=== PATIENT | female | born 1980 | race Caucasian/White ===

== ENCOUNTER 2017-02-19 09:01 | Observation (INO) | payer BC ==
--- NOTE | 2017-02-19 10:03 | ED ---
Abdominal Pain/Female - HPI Summary HPI Summary: Patient is a 36yo F presenting to the ED with CC of chest pain and abdominal pain 10 days s/p tension-free vaginal tape procedure for stress incontinence. This procedure was laparoscopic with trochar usage. This was an outpatient procedure and no complications were noted in the post-procedure note. Today, she states 3 days ago began with chest pain which is intermittent, described as a sharp and a pressure, moves about, but does not radiate. She also states she has had abdominal pain described as a sharp stabbing pain around the umbilicus. Eating and drinking OK. Denies urinary symptoms or back pain, fevers, chills , sweats, N/V/C/D. Denies SPANN. Denies any calf tenderness. She has been urinating normally without issues with incontinence. She called Dr. Hoffman ([phone]) this morning who advised her to come here to r/o PE. She was not placed on blood thinners s/p procedure as this was an outpatient procedures. PSHx includes hysterectomy, and anterior and posterior colporrhaphy. She is not experiencing any difficulty breathing. - History of Current Complaint Chief Complaint: EDGeneral Stated Complaint: ABD/CHEST PAIN Time Seen by Provider: 02/19/17 09:11 Hx Obtained From: Patient Hx Last Menstrual Period: 2010 ?: No Onset/Duration: Sudden Onset Timing: Constant Severity Initially: Moderate Severity Currently: Moderate Pain Intensity: 6 Pain Scale Used: 0-10 Numeric Location: Umbilical, Other - chest Radiates: Yes Radiates to: Chest Character: Burning Alleviating Factor(s): Nothing Associated Signs and Symptoms: Positive: Chest Pain - Risk Factors Ectopic Risk Factor: Maternal Age ^ 28, Prior Pelvic Surgery Ovarian Torsion Risk Factor: Negative Allergies/Adverse Reactions: Allergies Allergy/AdvReac Type Severity Reaction Status Date / Time Codeine Allergy Intermediate Vomiting Verified 05/21/15 08:14 Home Medications: Home Medications ALPRAZolam TAB* [Xanax TAB*] 0.5 mg PO Q6HR PRN 02/19/17 [History Confirmed ] Albuterol HFA INHALER* [Ventolin HFA Inhaler*] 2 puff INH DAILY 02/19/17 [ History Confirmed 02/19/17] Cholecalciferol [Vitamin D3 Ultra Strength] 5,000 unit PO DAILY 02/19/17 [ History Confirmed 02/19/17] Cyanocobalamin TAB* [Vitamin B12 TAB*] 1,000 mcg PO DAILY 02/19/17 [History Confirmed 02/19/17] Gabapentin CAP(*) [Neurontin 100 mg CAP(*)] 200 mg PO QPM 02/19/17 [History Confirmed 02/19/17] Multivitamins/Minerals TAB* [Theragran/minerals TAB*] 1 tab PO DAILY 02/19/17 [ History Confirmed 02/19/17] Sumatriptan [Imitrex] 20 mg BOTH NARES DAILY PRN 02/19/17 [History Confirmed ] ValACYclovir (*) [Valtrex 1 GM(*)] 1 gm PO TID PRN 02/19/17 [History Confirmed 02/19/17] Valsartan TAB* [Diovan TAB*] 40 mg PO BID 02/19/17 [History Confirmed 02/19/17] Zolpidem CR (NF) [Ambien CR (NF)] 6.25 mg PO BEDTIME PRN MDD 6.25 mg 02/19/17 [ History Confirmed 02/19/17] busPIRone TAB* [Buspar TAB*] 7.5 mg PO DAILY 02/19/17 [History Confirmed ] PMH/Surg Hx/FS Hx/Imm Hx Previously Healthy: Yes Endocrine/Hematology History: Denies: Hx Diabetes Cardiovascular History: Reports: Hx Hypercholesterolemia, Hx Hypertension - HX OF from OCP-stopped as teen & BP normalized, ALSO HAS WHITE COAT SYNDROM Denies: Hx Congestive Heart Failure, Hx Pacemaker/ICD Respiratory History: Reports: Hx Sleep Apnea - MILD History: Denies: Hx Renal Disease Musculoskeletal History: Reports: Other Musculoskeletal History - (left) ankle FX Sensory History: Reports: Hx Contacts or Glasses - INSTRUCT GIVEN Denies: Hx Hearing Aid Opthamlomology History: Reports: Hx Contacts or Glasses - INSTRUCT GIVEN Neurological History: Reports: Hx Headaches, Hx Migraine - 2 X PER YEAR- TREATS WITH EXCEDRINE MIGRAINE Psychiatric History: Reports: Hx Anxiety - ON MEDICATION FOR, Hx Depression - ON MEDICATION FOR Denies: Hx Panic Disorder - Surgical History Surgery Procedure, Year, and Place: [id number]. [place]. [place] [place]x Anesthesia Reactions: Yes - NAUSEA - Immunization History Date of Tetanus Vaccine: Unknown Hx Pertussis Vaccination: No Immunizations Up to Date: Unable to Obtain/Confirm Infectious Disease History: No Infectious Disease History: Denies: Traveled Outside the [place] in Last 30 Days - Social History Occupation: Employed Full-time Lives: With Family Alcohol Use: Occasionally Hx Substance Use: No Substance Use Type: Reports: None Hx Tobacco Use: No Smoking Status (MU): Never Smoked Tobacco Review of Systems Constitutional: Negative Eyes: Negative ENT: Negative Positive: Chest Pain Respiratory: Negative Positive: Abdominal Pain Positive: no symptoms reported, see HPI Musculoskeletal: Negative Skin: Negative Neurological: Negative All Other Systems Reviewed And Are Negative: Yes Physical Exam Triage Information Reviewed: Yes Vital Signs On Initial Exam: Initial Vitals Temp Pulse Resp BP Pulse Ox 97.7 F 80 20 152/100 100 02/19/17 09:05 02/19/17 09:05 02/19/17 09:05 02/19/17 09:05 02/19/17 09:05 Vital Signs Reviewed: Yes Appearance: Positive: Well-Appearing, Well-Nourished Skin: Positive: Warm, Skin Color Reflects Adequate Perfusion Head/Face: Positive: Normal Head/Face Inspection Eyes: Positive: EOMI, NGUYỄN, Conjunctiva Clear Neck: Positive: Supple, No Lymphadenopathy Respiratory/Lung Sounds: Positive: Clear to Auscultation, Breath Sounds Present Cardiovascular: Positive: RRR Pelvic Exam: Positive: other - no pelvic exam performed Musculoskeletal: Positive: Strength/ROM Intact Neurological: Positive: Sensory/Motor Intact, Alert, Oriented to Person Place, Time, Speech Normal Psychiatric: Positive: Normal AVPU Assessment: Alert - Jacey Coma Scale Coma Scale Total: 15 Diagnostics - Vital Signs Vital Signs Temp Pulse Resp BP Pulse Ox 02/19/17 09:35 99.1 F 80 12 139/91 93 02/19/17 09:34 139/91 02/19/17 09:05 97.7 F 80 20 152/100 100 - Laboratory Result Diagrams: 02/19/17 10:10 02/19/17 10:10 Lab Statement: Any lab studies that have been ordered have been reviewed, and results considered in the medical decision making process. Abdominal Pain Fem Course/Dx - Course Course Of Treatment: Patient given 4mg morphine twice without relief of symptoms. She is evaluated for PE with CTA and abdominal/pelvis CT to r/o abdominal pathology s/p TVT surgery in [place] with Dr. Garcia. Pain is not well controlled. EKG, trop and imaging all WNL. No evidence of heart pathology. Considered costochondritis but patient denies any exertion and pain is not improved with ibuprofen at home. Despite morphine, ordered toradol for possible inflammation. Discussed case with Dr. Garcia in [place] who thinks the chest pain and abdominal pain is not related to the recent surgery d/t location. Spoke with Dr. Valencia who agrees to accept the patient. Patient made aware. On final evaluation by ED provider, patients pain is located primarily in the chest which does not radiate. She is OK with admission. - Diagnoses Differential Diagnosis: Positive: Appendicitis, Bowel Obstruction, Other - costochondritis, post-surgical pain Provider Diagnoses: Chest pain, Abdominal pain Discharge - Discharge Plan Condition: Stable Disposition: ADMITTED TO [facility] Discharge Disposition Comment: admitted to [facility] to Dr. Valencia at 4pm. Referrals: Romeo Hayes DO [Primary Care Provider] -
[2017-02-19 10:34] LABS: Hematocrit 43 % (35-47); Hemoglobin 14.9 g/dl (12.0-16.0); Mean Corpuscular HGB Conc 35 g/dl (31-36); Mean Corpuscular Hemoglobin 32 pg (27-31); Mean Corpuscular Volume 92 fL (80-97); Mean Platelet Volume 9 um3 (7.4-10.4); Red Cell Distribution Width 12 % (10.5-15); White Blood Count 7.4 10^3/ul (3.5-10.8)
[2017-02-19 10:47] LABS: ALT 18 U/L (7-52); AST 14 U/L (13-39); Albumin 4.9 g/dL (3.2-5.2); Alkaline Phosphatase 76 U/L (34-104); Anion Gap 5 mmol/L (2-11); BUN/Creatinine Ratio 16.5 (8-20); Blood Urea Nitrogen 17 mg/dL (6-24); C Reactive Protein 3.55 mg/L (< 5.00); CO2 Carbon Dioxide 26 mmol/L (22-32); Calcium 10.5 mg/dL (8.6-10.3); Chloride 103 mmol/L (101-111); Creatine Kinase 32 U/L (10-223); EGFR African American 77.1 (>60); Globulin 2.8 g/dL (2-4); Glucose 100 mg/dL (70-100); Lipase 21 U/L (11.0-82.0); Sodium 134 mmol/L (133-145); Total Protein 7.7 g/dL (6.4-8.9)
[2017-02-19] MEDS ORDERED: Morphine INJ* 2 MG/ML 1 ML SYRINGE IV ONE ×2 (11:55→13:59)
[2017-02-19 12:28] LABS: Urine Bilirubin Negative (Negative); Urine Glucose Negative (Negative); Urine Nitrite Negative (Negative)
[2017-02-19] MEDS ORDERED: Iohexol 350* (CONTRAST) 500 ML MDV IV ONE ×2 (12:29→13:01)
--- NOTE | 2017-02-19 13:50 | RAD ---
HISTORY: Pain, chest pain, status post surgery COMPARISONS: CT of the abdomen and pelvis dated November 21, 2013 TECHNIQUE: Multiple contiguous axial CT scans were obtained of the chest, abdomen, and pelvis after the administration of intravenous contrast. Coronal and sagittal multiplanar reformations are submitted for review.. Oral contrast was administered. Delayed images were obtained through the abdomen and pelvis. FINDINGS: CHEST NECK AND THYROID: The lower neck and thyroid are unremarkable. CHEST WALL: There is no lower cervical, axillary, or supraclavicular lymphadenopathy by size criteria. HEART AND PERICARDIUM: The heart is unremarkable. AORTA AND PULMONARY VASCULATURE: There is no pulmonary arterial filling defect to suggest pulmonary was. The aorta is unremarkable. MEDIASTINUM: There is no mediastinal lymphadenopathy by size criteria. MELODY: There is no hilar lymphadenopathy by size criteria. AIRWAY AND ESOPHAGUS: The airway is unremarkable, without endobronchial filling defect. The esophagus is grossly normal. LUNG PARENCHYMA: The lungs are clear. PLEURA: No pleural abnormalities are noted. BONES AND SOFT TISSUES: No bone or soft tissue abnormalities are noted. ABDOMEN/PELVIS: LIVER: The liver is normal in shape, size, contour, and attenuation. BILE DUCTS: There is no intrahepatic or extrahepatic biliary dilatation. GALLBLADDER: The gallbladder is normal, without pericholecystic inflammatory change. PANCREAS: The pancreas is normal, without mass or ductal dilatation. SPLEEN: Normal in size and appearance. UPPER GI TRACT: Evaluation of the gastrointestinal tract is limited by incomplete gastric distention. The upper GI tract is unremarkable. SMALL BOWEL \T\ MESENTERY: The small bowel is normal in contour, course, and caliber. There is no obstruction or dilatation. COLON: The colon is normal in contour, course, caliber. There is no pericolonic inflammatory change. A surgical clip is noted anterior to the rectum. There is a tubular, vermiform, hollow viscus that is blind ending, and originates from the cecum, consistent with a normal appendix. There is no periappendiceal inflammatory change. ADRENALS: Normal bilaterally. KIDNEYS: The kidneys are normal in shape, size, contour, and axis. There is no hydronephrosis or nephrolithiasis. BLADDER: The bladder is smooth in contour. PELVIC ORGANS: The uterus and adnexa are grossly normal for technique. AORTA: The aorta is normal. IVC: Unremarkable LYMPH NODES: There is no lymphadenopathy by size criteria. ABDOMINAL WALL: There is no evidence for abdominal wall hernia. A surgical clip is noted deep to the anterior abdominal musculature just below the umbilicus. BONES: Unremarkable OTHER: None IMPRESSION: 1. NO PULMONARY ARTERIAL FILLING DEFECT TO SUGGEST PULMONARY EMBOLISM. 2. POSTSURGICAL CHANGE. NO ACUTE CT PATHOLOGY OF THE VISUALIZED ABDOMEN OR PELVIS.
[2017-02-19] MEDS ORDERED: Ketorolac INJ* 30 MG/ML 1 ML VIAL IV PUSH ONE (15:35)
[2017-02-19] MEDS ORDERED: Ketorolac INJ* 30 MG/ML 1 ML VIAL IV PUSH PRN (16:15)
[2017-02-19] MEDS ORDERED: Acetaminophen TAB* 325 MG PO PRN (16:17)
[2017-02-19] MEDS ORDERED: Albuterol/Ipratropium NEB.SOL* Albuterol 2.5 MG/Ipratropium 0.5 MG 3 ML INH ONE (16:18)
[2017-02-19] MEDS ORDERED: Morphine INJ* 2 MG/ML 1 ML SYRINGE IV PRN (16:22)
[2017-02-19] MEDS ORDERED: Zolpidem TAB* 5 MG PO PRN (16:25)
[2017-02-19] MEDS ORDERED: ALPRAZolam TAB* 0.5 MG PO PRN (16:25)
[2017-02-19] MEDS ORDERED: NS 0.9% 1000 ML* 1,000 ML IV SCH (16:30)
[2017-02-19] MEDS ORDERED: Gabapentin CAP(*) 100 MG PO SCH (18:00)
[2017-02-19] MEDS ORDERED: Nitroglycerin 2% OINT* 1 GM PAK TOPICAL ONE (18:33)
[2017-02-19] MEDS: Ondansetron INJ* 2 MG/ML VIAL IV PRN (19:27)
[2017-02-19] MEDS: Valsartan TAB* 40 MG PO SCH (20:42)
--- NOTE | 2017-02-19 21:47 | HP ---
CC: Dr. Hayes * HISTORY AND PHYSICAL: DATE OF ADMISSION: 02/19/17 PROVIDER: Ernie Molina NP ATTENDING PHYSICIAN: Valdo Villa MD * (as dictated by Ernie Molina NP) . PRIMARY CARE PROVIDER: Dr. Hayes. PRIMARY ELECTRIC ORGAN ASSEMBLER: Dr. Wyatt Archuleta. CHIEF COMPLAINT: Chest pain. HISTORY OF PRESENT ILLNESS: Ms. Garcia is a 36-year-old female, who presents today with concern for chest pain that has been intermittent x4 days. Of note, Ms. Garcia recently underwent a tension-free vaginal tape and cystoscopy for stress urinary incontinence on February 09 up in [place], which she allegedly tolerated it well. She reports that she has had decreased activity since her surgery but has had no complaints until approximately 4 days ago when she has started noticing that she has had intermittent chest pain. She describes the pain as sharp pressure that comes and goes and a persistent tightness across her chest that has not gone away. Pain varies in location, but it is mostly midsternal although it can radiate along her left breast, middle of the breast and around the rib cage. She denies any aggravating factors, stated that she does not notice if it gets better with eating or position changes. She denies any relieving factors. She has been treating her pain with Tylenol and ibuprofen, which has also been treating her surgical pain. Here in the ER, she notes that the morphine did help some. However, the chest tightness continues to be present. She denies ever having chest pain like this before. She states it does not feel musculoskeletal in nature, does not feel like anxiety that she has had in the past. She reports associated sharp stabbing pain around the umbilicus, which started yesterday, this also comes and goes. She denies any shortness of breath, nausea, vomiting, or diarrhea, radiation into the back or neck. She denies any fever or chills, associated joint or muscle pains. She denies any changes in her weight or to her appetite. She denies any dysuria or hematuria. She denies any focal weakness or sensory loss, changes to her vision or hearing. She denies any rashes or lesions. She denies any worsening anxiety or depression. Here in the ER, the patient had labs drawn with only her calcium at 10.5 and creatinine 1.03 being out of the normal range. Her troponins have been negative. Her CRP is 3.55. She has lipase of 21. The patient also had a CTA of the chest, abdomen, and pelvis done with contrast, which was negative for PE. It showed no acute CT pathology. PAST MEDICAL HISTORY: 1. Stress urinary incontinence, status post tension-free vaginal tape, [place] [employer], and cystoscopy. 2. Hypertension. 3. History of migraine. 4. Depression. 5. Exercise-induced asthma. 6. Restless leg syndrome. PAST SURGICAL HISTORY: Includes: 1. Tension-free vaginal tape with cystoscopy. 2. Left ankle tendon repair. 3. Transvaginal hysterectomy with anterior and posterior colporrhaphy. HOME MEDICATIONS: 1. Gabapentin 100 mg q.p.m. 2. Valsartan 40 mg b.i.d. 3. Multivitamin 1 tab daily. 4. Vitamin B12 1000 mcg daily. 5. Cholecalciferol 5000 units daily. 6. Alprazolam 0.5 mg q.6 hours p.r.n. 7. Albuterol inhaler 2 puffs inhaled daily. 8. Zolpidem 6.25 mg at bedtime p.r.n. 9. Valacyclovir 1 mg t.i.d. p.r.n. 10. Sumatriptan 20 mg to both nares daily p.r.n. migraine. 11. BuSpar 7.5 mg daily. ALLERGIES: Include CODEINE, which causes upset stomach. FAMILY HISTORY: She reports her mother with hypertension and history of partial parathyroidectomy. Her father has a history of diabetes, hypertension, and hyperlipidemia. SOCIAL HISTORY: She reports she is a former social smoker, but never a very consistent or heavy smoker. She reports very rare alcohol use. She denies any history of illicit drug use. She works at the [employer] She is and has children. Her , Austin Garcia, is her surrogate decision maker. REVIEW OF SYSTEMS: As per HPI, all those not mentioned are negative. PHYSICAL EXAMINATION GENERAL: Ms. Garcia is a 36-year-old female, who is well developed, well nourished. She was lying in ED stretcher in no acute distress. VITAL SIGNS: Temperature 99.1, heart rate 74, respiratory rate 16, blood pressure 141/81 and O2 saturation is 99% on room air. HEENT: Head is atraumatic, normocephalic. Face is symmetrical. Pupils are equal, round, and reactive to light. Sclerae anicteric. External ears and nose are normal. Oral mucosa appears moist. No oropharyngeal erythema noted. NECK: Supple. No lymphadenopathy appreciated. RESPIRATORY: Lungs are clear to auscultation. No accessory muscle use noted. CARDIAC: S1 and S2 heart sounds. Regular rate and rhythm. No murmurs, rubs, or gallops. There is no peripheral edema. The patient has 2+ distal pulses. ABDOMEN: Soft, nondistended. Mildly tender in the lower abdomen with palpation. Bowel sounds present and normoactive. MUSCULOSKELETAL: The patient moves all extremities and appears to have full range of motion. No clubbing or cyanosis noted. SKIN: Limited assessment, but appears grossly intact. NEURO: Cranial nerves II through XII are intact. The patient moves all extremities. Sensation is intact to light touch. PSYCH: She is alert and oriented x3. Affect is appropriate. LABORATORY DATA AND DIAGNOSTIC STUDIES: CBC: WBC 7.4, hemoglobin 14.9, hematocrit 43, platelet count 203. CMP: Sodium 134, potassium 4.0, chloride 103, carbon dioxide 26, BUN 17, creatinine 1.03, glucose 100, lactic acid 1.0, calcium 10.5. Total bilirubin 3.5, AST 14, ALT 18, alk phos 76, total CK 32, troponin 0.00, CRP 3.55, albumin 4.9, lipase 21. Beta-HCG quantitative is negative. UA negative for nitrites, leukocyte esterase. CTA of the abdomen and pelvis was negative for PE or any acute CT pathology. Old medical records are reviewed. ASSESSMENT AND PLAN: Ms. Garcia is a 36-year-old female, who presents with chest tightness and abdominal discomfort and is status post recent stress incontinence vaginal tape procedure. She will be admitted under observation to the telemetry floor. Plan is as follows. 1. Chest pain, etiology of the pain is unclear at this time. The patient did just recently have a surgical procedure done as an outpatient and her CT is negative for pulmonary embolus. Her troponins are negative for pulmonary embolus. Her EKG is normal and she has no acute signs of ST or T wave changes that will indicate ischemia. We will continue to monitor on telemetry. At this point, given her persistent symptoms, we will plan for a stress test tomorrow. She has no associated shortness of breath, but with persistent chest tightness and her history of exercise-induced asthma, we will attempt at albuterol treatment to see if this helps with some of that tightness. Continue with morphine and I may add on nitro to see if we can break the patient's chest tightness and discomfort. Check her lipid profile in the morning and continue to monitor. 2. Abdominal pain. The pain is diffuse and not localized at this time. It does not seem to represent any acute pathology such as an appendicitis and the patient's CT scan is currently negative. We will continue to watch this. She does not endorse any new bowel changes or nausea or vomiting and reports good appetite as well as regular bowel movements. We will recheck her labs tomorrow and continue to monitor. As of the chest pain, this abdominal pain is also intermittent, so it is difficult to determine the etiology of this as well. I suspect that it may be secondary to her recent procedure; however, this is unclear. 3. Elevated creatinine. The patient appears to have had elevated creatinine in the past. I will give her 1 L of fluid, recheck a BMP tomorrow. 4. Hypercalcemia. I suspect this is secondary to dehydration, follow on tomorrow's BMP. 5. History of hypertension. The patient is on valsartan, which we will continue. 6. History of migraines. Continue home gabapentin, which the patient states she takes for her headaches. 7. History of depression and anxiety. Continue home BuSpar and Xanax p.r.n. 8. Fluids, electrolytes, nutrition. The patient is ordered a heart-healthy diet and IV fluids. 9. DVT prophylaxis. The patient scores a 1 on the Adult DVT Prophylaxis Risk Assessment, which is low risk. She has ordered SCDs and encouraged to ambulate. 10. Code status. The patient is a full code. TIME SPENT: Time spent on this admission was approximately 60 minutes, more than half that time was spent [id number] with the patient obtaining history and physical, performing physical examination, and reviewing the plan of care. Plan of care was also reviewed with my attending, Dr. Villa, who is in agreement. ERNIE MOLINA, EMBROIDERY WORKER [id number]/[facility] #: [id number] NOAH
[2017-02-20 04:47] LABS: Hematocrit 39 % (35-47); Hemoglobin 13.7 g/dl (12.0-16.0); Mean Corpuscular HGB Conc 35 g/dl (31-36); Mean Corpuscular Hemoglobin 32 pg (27-31); Mean Corpuscular Volume 93 fL (80-97); Mean Platelet Volume 9 um3 (7.4-10.4); Red Blood Count 4.24 10^6/ul (4.0-5.4); Red Cell Distribution Width 12 % (10.5-15); White Blood Count 7.2 10^3/ul (3.5-10.8)
[2017-02-20 05:01] LABS: BUN/Creatinine Ratio 17.3 (8-20); C Reactive Protein 2.95 mg/L (< 5.00); Calcium 9.2 mg/dL (8.6-10.3); EGFR African American 71.5 (>60); EGFR Non-African American 55.6 (>60); HDL Cholesterol 29.3 mg/dL; Potassium 4.1 mmol/L (3.5-5.0)
[2017-02-20] MEDS ORDERED: Multivitamins/Minerals TAB PO SCH (09:00)
[2017-02-20] MEDS ORDERED: Cyanocobalamin TAB* 500 MCG PO SCH (09:00)
[2017-02-20] MEDS ORDERED: Cholecalciferol TAB* 1000 UNITS PO SCH (09:00)
[2017-02-20] MEDS ORDERED: busPIRone TAB* 5 MG PO SCH (09:00)
[2017-02-20] MEDS ORDERED: Aminophylline IV* 25 MG/ML 10 ML VIAL ONE (09:19)
[2017-02-20] MEDS ORDERED: Regadenoson* 0.4 MG/5 ML SYRINGE ONE (09:19)
--- NOTE | 2017-02-20 10:05 | PN ---
Subjective Date of Service: 02/20/17 Interval History: Patient seen and examined at bedside Reports improvement in chest tightness down to a 2/10 with nitro but never completely resolved Denies any dyspnea, n/v, fever/chills, diaphoresis or other concerns Abdominal pain resolved. Family History: Unchanged from Admission Social History: Unchanged from Admission Past Medical History: Unchanged from Admission Objective Active Medications: Acetaminophen (Tylenol Tab*) 650 mg PO Q4H PRN PRN Reason: FEVER/PAIN Last Admin: 02/20/17 06:06 Dose: 650 mg Alprazolam (Xanax Tab*) 0.5 mg PO Q6HR PRN PRN Reason: ANXIETY Buspirone HCl (Buspar Tab*) 7.5 mg PO DAILY [facility] Cholecalciferol (Vitamin D Tab*) 5,000 units PO DAILY [facility] Cyanocobalamin (Vitamin B12 Tab*) 1,000 mcg PO DAILY [facility] Gabapentin (Neurontin Cap(*)) 100 mg PO QPM [facility] Last Admin: 02/19/17 19:27 Dose: 100 mg Ketorolac Tromethamine (Toradol Inj*) 30 mg IV PUSH Q6H PRN PRN Reason: PAIN Morphine Sulfate (Morphine Inj (Syringe)*) 2 mg IV Q4H PRN PRN Reason: PAIN Multivitamins/Minerals (Theragran/Minerals Tab*) 1 tab PO DAILY [facility] Ondansetron HCl (Zofran Inj*) 4 mg IV Q6H PRN PRN Reason: NAUSEA Last Admin: 02/19/17 19:27 Dose: 4 mg Valsartan (Diovan Tab*) 40 mg PO BID [facility] Last Admin: 02/19/17 20:42 Dose: 40 mg Zolpidem Tartrate (Ambien Tab*) 5 mg PO BEDTIME PRN PRN Reason: SLEEP Vital Signs 02/19/17 02/19/17 02/19/17 15:30 16:00 17:50 Temperature 97.3 F Pulse Rate 78 71 71 Respiratory 15 16 16 Rate Blood Pressure 121/83 132/91 (mmHg) O2 Sat by Pulse 97 95 100 Oximetry 02/19/17 02/19/17 02/19/17 19:27 19:54 21:27 Temperature 98.4 F Pulse Rate 69 Respiratory 16 16 16 Rate Blood Pressure 122/74 (mmHg) O2 Sat by Pulse 98 Oximetry 02/19/17 02/20/17 23:28 04:09 Temperature 98.1 F 97.5 F Pulse Rate 66 76 Respiratory 16 16 Rate Blood Pressure 110/72 100/60 (mmHg) O2 Sat by Pulse 97 96 Oximetry Oxygen Devices in Use Now: None Appearance: Young female, lying in bed, in NAD Eyes: No Scleral Icterus Ears/Nose/Mouth/Throat: Clear Oropharnyx, Mucous Membranes Moist Neck: NL Appearance and Movements; NL JVP Respiratory: Symmetrical Chest Expansion and Respiratory Effort, Clear to Auscultation Cardiovascular: NL Sounds; No Murmurs; No JVD, RRR Abdominal: NL Sounds; No Tenderness; No Distention Extremities: No Edema Skin: No Rash or Ulcers Neurological: Alert and Oriented x 3 Lines/Tubes/Other Access: Clean, Dry and Intact Peripheral IV Nutrition: Taking PO's Result Diagrams: 02/20/17 04:15 02/20/17 04:17 Assess/Plan/Problems-Billing Assessment: Ms. Garcia is a 36 yo female with a PMH of HTN, migraines, depression/anxiety, and stress incontinence who presented to the ED on 02/19 with concern for chest tightness and abdominal discomfort. - Patient Problems (1) Chest pain Code(s): R07.9 - CHEST PAIN, UNSPECIFIED Comment: Troponins negative, no ischemic changes to EKG CTA negative for PE, no elevations in CRP or indication of pericarditis Stress test showed no evidence of ischemia by EKG criteria and no fixed or reversible defects on nuclear imaging. Etiology unclear, suspect combination of musculoskeletal and possibly GI. Outpatient f/u with PCP recommended. Continue with antiinflmmatories. (2) Abdominal pain Status: Acute Code(s): R10.9 - UNSPECIFIED ABDOMINAL PAIN Comment: Resolved No acute pathology on CT, no fever or leukocytosis Suspect secondary to recent procedure and medications (3) Elevated serum creatinine Code(s): R79.89 - OTHER SPECIFIED ABNORMAL FINDINGS OF BLOOD CHEMISTRY Comment : Patient's baseline appears to be between 1.0 and 1.1 Patient reports that this has been her norm for several years. Continue outpatient f/u with PCP. (4) HTN (hypertension) Code(s): I10 - ESSENTIAL (PRIMARY) HYPERTENSION Comment: Normotensive Continue valsartan (5) Hx of migraines Code(s): Z86.69 - PERSONAL HISTORY OF DIS OF THE NERVOUS SYS AND SENSE ORGANS Comment: Continue home gabapentin. (6) Hypercalcemia Code(s): E83.52 - HYPERCALCEMIA Comment: Resolved Suspect secondary to dehydration (7) Depression with anxiety Comment: Continue home buspirone and alprazolam. (8) DVT prophylaxis Comment: SQ heparin Status and Disposition: OBV admit. D/c to home.
[2017-02-20] MEDS: Valsartan TAB* 40 MG PO SCH (10:19)
[2017-02-20] MEDS: Ondansetron INJ* 2 MG/ML VIAL IV PRN (10:31)
--- NOTE | 2017-02-20 10:39 | RAD ---
HISTORY: Chest pain, hypertension, obesity COMPARISONS: None TECHNIQUE: A 1 day stress/rest myocardial perfusion study was performed, with pharmacologic stress. The stress portion was monitored by Dr. Cabral. Gated SPECT imaging was performed, with CT-based attenuation correction DOSE: Stress: Technetium 99m tetrofosmin, 25.46 millicuries, injected at 9:22 AM on February 20, 2017 Rest: Technetium 99m tetrofosmin, 10.67 millicuries, injected at 6:35 AM on February 20, 2017 Pharmacologic agent: Lexiscan FINDINGS: CARDIAC MONITORING: No EKG criteria of ischemia with stress EF: 72 % TID: 1.04 MOTION: Normal motion, with normal wall thickening. PERFUSION: There are no fixed or reversible perfusion defects. OTHER: None IMPRESSION: NO FIXED OR REVERSIBLE PERFUSION DEFECTS ASSESSMENT: LOW RISK. Based on imaging criteria from ACC/AHA 2002. Guideline Update for the Management of Patient's with Chronic Stable Angina, table 23. Noninvasive Risk Stratification.
[2017-02-20] MEDS ORDERED: Pantoprazole IV* 40 MG IV ONE (12:00)
[2017-02-20 13:23] VITALS: BP 120/74
--- NOTE | 2017-02-21 05:10 | DS ---
CC: Dr. Hayes. * DISCHARGE SUMMARY: DATE OF ADMISSION: 02/19/17 DATE OF DISCHARGE: 02/20/17 PROVIDER: Ernie Molina NP ATTENDING PHYSICIAN: Dr. Valdo Villa * (dictated by Ernie Molina NP) PRIMARY CARE PROVIDER: Dr. Hayes. PRIMARY DISCHARGE DIAGNOSES: 1. Chest pain. 2. Abdominal pain. SECONDARY DISCHARGE DIAGNOSES: 1. History of stress urinary incontinence, status post tension-free vaginal taping and cystoscopy. 2. Hypertension. 3. History of migraines. 4. Depression. 5. Exercise-induced asthma. 6. Restless leg syndrome. HOME MEDICATIONS AT DISCHARGE: 1. Gabapentin 100 mg q.p.m. 2. Valsartan 40 mg b.i.d. 3. Multivitamin 1 tab daily. 4. Vitamin B12 1000 mcg daily. 5. Vitamin D3 5000 units daily. 6. Alprazolam 0.5 mg q.6 hours p.r.n. 7. Albuterol inhaler 2 puffs inhaled daily. 8. Zolpidem CR 6.25 mg at bedtime p.r.n. 9. Valacyclovir 1 g t.i.d. p.r.n. 10. Sumatriptan 20 mg to both nares daily p.r.n. 11. Buspirone 7.5 mg daily. HOSPITAL COURSE OF STAY: For full details, please refer to the H and P provided on 02/19/17. In summary, Ms. Garcia is a 36-year-old female who presented to the hospital with concern for persistent chest pain that has been intermittent x4 days, progressively worsening. The patient reports that she underwent tension-free vaginal taping and cystoscopy for stress urinary incontinence in [place] on 02/09/17. She has tolerated the procedure well, but approximately 4 days prior to admission, the patient reports chest tightness that has been persistent and intermittent sharp pressures that come and go across her chest. The pain is mostly midsternal, although it may vary and occur in different locations. She does not note any aggravating or alleviating factors and has not noticed much difference with Tylenol or ibuprofen. The tightness has kept her up at night and preventing her from sleeping well. She does not feel like it is musculoskeletal or anxiety. In the ER, the patient had a full workup which included a CTA, which was negative for PE as well as lab work which showed normal CRP and negative troponins as well as a lipase of 21. She was admitted overnight for further observation. The patient did not respond to albuterol treatment, toradol, or morphine. She did report that the pain got better with nitro ointment, bringing the pain down to 2/10. She was able to get some rest. The following morning, the patient had a stress test. The stress test showed no ischemia by EKG criteria and her nuclear portion was read as no reversible or fixed defects noted and low risk. We did discuss the patient's pain may be site safety representative of GI issue or musculoskeletal as we have ruled out other cardiac causes. Her pain is not consistent with pericarditis. Her inflammatory markers are benign, there are no diffuse ST changes seen at her EKG, and her pain does not get better with positional changes. The patient was given a dose of Protonix to see if this would assist with pain relief, and she did not note any appreciable difference. The patient was advised to follow up with her PCP and continue with antiinflammatory medication for chest discomfort. She is in agreement and feels safe for discharge. CONCERNS AT DISCHARGE: Ms. Garcia is discharged to home on 02/20/17. She is to follow up with her PCP for further evaluation and monitoring of her complaint. In regards to her abdominal pain, this has resolved here at the hospital and no further complaints were noted. FOLLOWUP: The patient's followup needs: The patient was also noted to have a mildly elevated creatinine which appears to be her baseline per labs. It was noted to be 1.03 and 1.10. The patient states that this was not new. The patient is advised to follow up with her PCP regarding this. CTA showed normal kidney size, with no structural abnormalities. The patient was also advised to follow up with her PCP regarding her triglyceride level which was 232. DIET: Heart-healthy diet. ACTIVITY: As tolerated. CONDITION: Stable. DISPOSITION: To home. TIME SPENT: Time spent on this discharge was approximately 45 minutes. Again, this is only a brief summary of the patient's hospital course of stay. For full details, please refer to the full medical record. If you have any further questions or need further assistance, please feel free to contact me at [phone]. ERNIE MOLINA NP [id number]/[facility] #: [id number] [facility] SYSTEM[facility]
== END 2017-02-20 14:10 | disposition home or self-care (01) ==
LOC: ED 09:01 → MEDTELE 15:19
PROVIDERS: ADMIT Internal Medicine; ATTEND Internal Medicine
DX: R07.89 Other chest pain (principal); R10.84 Generalized abdominal pain; E83.52 Hypercalcemia; Z87.891 Personal history of nicotine dependence; J45.990 Exercise induced bronchospasm; Z79.899 Other long term (current) drug therapy; I10 Essential (primary) hypertension; R10.2 Pelvic and perineal pain; N94.9 Unspecified condition associated with female genital organs and menstrual cycle
CPT/HCPCS: 36415; 71275; 74177; 78452; 80048; 80053; 80061; 81003; 82550; 83605; 83690; 84443; 84484; 84702; 85025; 86140; 86618; 93005; 93017; 94640; 94760; 96361; 96374; 96375; 96376; 99284; A9270-GY; A9502; G0378; J0280; J1885; J2270; J2405; J2785; Q9967

== ENCOUNTER 2017-06-07 07:22 | Emergency (ER) | payer BC ==
--- NOTE | 2017-06-07 07:31 | UC ---
Lower Extremity/Ankle HPI - HPI Summary HPI Summary: 36 year old female with right ankle injury. Right ankle pain and swelling at lateral malleolus onset yesterday while walking on basilia surface. Pt felt 'pop' and sudden instability; popping sound continued through the day. had similar issue left ankle and needed surgery with dr gonzalez. took ibuprofen 3-4 hours ago [ End ] - History of Current Complaint Stated Complaint: RIGHT ANKLE INJURY Time Seen by Provider: 06/07/17 07:29 Hx Obtained From: Patient Hx Last Menstrual Period: 2010 ?: No Onset/Duration: Sudden Onset Severity Initially: Moderate Aggravating Factor(s): Standing, Ambulation Alleviating Factor(s): Rest Able to Bear Weight: Yes Related History: Other - happened at work - Allergies/Home Medications Allergies/Adverse Reactions: Allergies Allergy/AdvReac Type Severity Reaction Status Date / Time Codeine Allergy Intermediate Vomiting Verified 06/07/17 07:39 Home Medications: Home Medications Aspirin [Aspirin 81 MG TAB] 81 mg PO DAILY 06/07/17 [History Confirmed 06/07/17] Ibuprofen TAB* [Motrin TAB* 400 MG] 400 mg PO ONCE PRN 06/07/17 [History Confirmed 06/07/17] PMH/Surg Hx/FS Hx/Imm Hx Previously Healthy: Yes Cardiovascular History: Hypertension Psychological History: Anxiety, Depression - Surgical History Surgical History: Yes Surgery Procedure, Year, and Place: [id number]. [facility]&C. TUBAL LIGATION -[facility] [place]-2006 - Family History Known Family History: Positive: Hypertension - Social History Occupation: Employed Full-time Alcohol Use: Rare Substance Use Type: None Smoking Status (MU): Never Smoked Tobacco - Immunization History Most Recent Influenza Vaccination: APR 2015 Review of Systems Musculoskeletal: Arthralgia, Decreased ROM Is Patient Immunocompromised?: No All Other Systems Reviewed And Are Negative: Yes Physical Exam Triage Information Reviewed: Yes Appearance: Well-Appearing, Well-Nourished Vital Signs Reviewed: Yes Eyes: Positive: Conjunctiva Clear Respiratory Exam: Normal Cardiovascular Exam: Normal Musculoskeletal: Positive: ROM Limited @ - pain with inversion. neg homans. no break in skin. swelling lateral malleolus Neurological Exam: Normal Psychological Exam: Normal Skin Exam: Normal Diagnostics - Laboratory Diagnostic Studies Completed/Ordered: FINDINGS: There is a small avulsion fracture from the lateral malleolus and there is. likely a small avulsion from lateral talus. No other fractures are evident. The ankle. mortise is intact. There is lateral soft tissue swelling. Lower Extremity Course/Dx - Course Course Of Treatment: declined crutches as she has at home and call her ortho later today for f/u - Differential Dx/Diagnosis Differential Diagnosis/HQI/PQRI: Fracture (Closed), Sprain, Strain Provider Diagnoses: ankle fracture Discharge - Discharge Plan Condition: Good Disposition: HOME Patient Education Materials: Ankle Fracture (ED) Forms: *Work Release Referrals: Romeo Hayes DO [Primary Care Provider] - If Needed Pillo Gonzalez MD [Medical Doctor] - As Soon As Possible Additional Instructions: FINDINGS: There is a small avulsion fracture from the lateral malleolus and there is likely a small avulsion from lateral talus. No other fractures are evident. The ankle mortise is intact. There is lateral soft tissue swelling.
[2017-06-07] MEDS ORDERED: Acetaminophen TAB* 325 MG PO ONE (07:48)
[2017-06-07 07:56] VITALS: BP 142/96
--- NOTE | 2017-06-07 08:10 | RAD ---
INDICATION: Right ankle injury COMPARISON: None TECHNIQUE: AP, lateral, and oblique views were obtained. FINDINGS: There is a small avulsion fracture from the lateral malleolus and there is likely a small avulsion from lateral talus. No other fractures are evident. The ankle mortise is intact. There is lateral soft tissue swelling. IMPRESSION: LATERAL ANKLE FRACTURES DESCRIBED.
== END 2017-06-07 08:36 | disposition home or self-care (01) ==
LOC: UCCORT 07:22
DX: S82.61XA Displaced fracture of lateral malleolus of right fibula, initial encounter for closed fracture (principal); X58.XXXA Exposure to other specified factors, initial encounter; Y92.9 Unspecified place or not applicable; Z88.5 Allergy status to narcotic agent; Z79.82 Long term (current) use of aspirin; I10 Essential (primary) hypertension
CPT/HCPCS: 99213; A9270-GY; G0463

== ENCOUNTER 2018-03-25 06:30 | Day surgery (SDC) | payer OTHER ==
[~2018-03-25 06:30] MED LIST: Buffered Lidocaine 0.9% SYRIN* 5 ML/SYR SYRINGE INTRADERM ONE; Sodium Citrate/Citric Acid* 15 ML UDC PO ONE; ceFOXitin 2 GM IVPREMIX* 2 GM/50 ML BAG ONE
[2018-03-25] MEDS ORDERED: Sodium Citrate/Citric Acid* 15 ML UDC ONE (06:47)
[2018-03-25] MEDS ORDERED: ceFAZolin 2 GM in NS PREMIX(*) 2 GM/100 ML BAG IVPB ONE (06:48)
[2018-03-25] MEDS ORDERED: Scopolamine 1.5 mg* PATCH ONE (07:07)
[2018-03-25] MEDS ORDERED: Midazolam* 1 MG/ML 2 ML VIAL (2 MG) ONE (07:19)
[2018-03-25] MEDS ORDERED: fentaNYL* 50 MCG/ML 2 ML VIAL (100 MCG VIAL) ONE (07:19)
[2018-03-25] MEDS ORDERED: Bupivacaine 0.5% SDV PF* 30ML VIAL ONE (07:25)
[2018-03-25] MEDS ORDERED: Ondansetron INJ* 2 MG/ML VIAL IV PRN (08:05)
[2018-03-25] MEDS ORDERED: fentaNYL* 50 MCG/ML 2 ML VIAL (100 MCG VIAL) IV PRN (08:05)
[2018-03-25] MEDS ORDERED: Ketorolac INJ* 30 MG/ML 1 ML VIAL IV PRN (08:05)
[2018-03-25] MEDS ORDERED: Naloxone* 0.4 MG/ML 1 ML VIAL IV PRN (08:05)
[2018-03-25] MEDS ORDERED: Ketorolac INJ* 30 MG/ML 1 ML VIAL ONE (09:03)
[2018-03-25] MEDS ORDERED: Ondansetron INJ* 2 MG/ML VIAL ONE (09:03)
[2018-03-25] MEDS ORDERED: Propofol* 10 MG/ML 20 ML BTL IV PUSH ONE (09:27)
[2018-03-25] MEDS ORDERED: Dexamethasone IV* 4 MG/ML 1 ML (4 MG) ONE (09:27)
[2018-03-25] MEDS ORDERED: Lidocaine 2% PF * 5 ML VIAL ONE (09:27)
[2018-03-25 09:54] VITALS: BP 141/96
--- NOTE | 2018-03-26 02:33 | OP ---
DATE OF OPERATION: 03/25/18 - [facility] DATE OF : 76 ATTENDING SURGEON: Pillo Gonzalez MD LOCKET MAKER: Audrey Burr PA-C. PRE-OP DIAGNOSIS: Left peroneus longus tear, possible peroneal instability. POST-OP DIAGNOSIS: Left peroneus longus tear, possible peroneal instability. OPERATIVE PROCEDURE: Repair tendinosis left peroneus longus tendon and groove deepening peroneal retinaculum. DESCRIPTION OF PROCEDURE: The patient was taken to the operating room, lateral positioning used. We opened up longitudinally over the distal fibula. We opened up the retinaculum behind the fibula. We inspected both the peroneus brevis and longus tendons. The peroneus brevis tendon was intact. The longus had some thickening through the 2 cm near the retinaculum with some tendinosis along the deep segment. We excised the portion of this damaged tendon area and then whipstitched repair of 3-0 Vicryl. This was of area of about 3 cm in length. We then deepened the groove which was somewhat atrophic by creating an osteotomy with the sagittal saw just inside the lateral corner of the groove and driving the posterior cortex anteriorly with the bone tamp. We then passed #1 Vicryl sutures through the fibula and using a Romeo Juan Carlos type repair we tucked the retinaculum underneath the osteotomy edge. We closed the subcu with 2-0 Vicryl sutures, Monocryl for the skin, and a compression dressing, plaster splint applied. [id number]/[facility] #: [id number] [facility]
== END 2018-03-25 10:08 | disposition home or self-care (01) ==
LOC: OR 06:30
PROVIDERS: ATTEND Orthopaedic Surgery
DX: M76.72 Peroneal tendinitis, left leg (principal); I10 Essential (primary) hypertension; J45.909 Unspecified asthma, uncomplicated; F41.8 Other specified anxiety disorders
CPT/HCPCS: A9270-GY; C1776; J0690; J0694; J1100; J1885; J2250; J2405; J2704; J3010

== ENCOUNTER → 2019-04-07 10:10 | Day surgery (SDC) | payer OTHER ==
[~2019-04-07 10:10] MED LIST changes: -Buffered Lidocaine 0.9% SYRIN* 5 ML/SYR SYRINGE INTRADERM ONE; +Buffered Lidocaine 1% SYRIN* 1 ML/SYRINGE INTRADERM ONE; +Bupivacaine 0.5%* 50 ML MDV VIAL ONE; +Lactated Ringers 1000 ML Bag* 1,000 ML IV SCH; +Lidocaine 2% PF * 5 ML VIAL ONE; +Midazolam* 1 MG/ML 2 ML VIAL (2 MG) ONE; +Propofol* 10 MG/ML 20 ML BTL ONE; +Sodium Citrate/Citric Acid* 15 ML UDC ONE; +ceFAZolin 2 GM in NS PREMIX(*) 0 GM/0 ML BAG IVPB ONE; -ceFOXitin 2 GM IVPREMIX* 2 GM/50 ML BAG ONE; +fentaNYL* 50 MCG/ML 2 ML VIAL (100 MCG VIAL) ONE; +hydrALAZINE IV* 20 MG/ML VIAL ONE
[2019-04-07 11:06] VITALS: BP 161/127
--- NOTE | 2019-04-07 14:51 | CONSULT ---
Subjective Date of Service: 04/07/19 Interval History: Medicine Consult Note 38F PMH HTN, anxiety, chronic pain who presented for elective orthopedic surgery this morning with acute hypertension urgency systolics in the 160s, she rec'd 5mg Hydralazine x 2 at 1PM, 1:15PM with no sig improvement, medicine was consulted to discuss her home antiHTN regimen. Patient takes Losartan 25mg, which she took hte night before, she had no medications this morning, including her alprazolam which she was instructed not to take. ROS: Gen: asymptomatic no fevers or chills Pulm: No SOB CV: No CP or palps GI: No NVDC : No urgency or dysuria MSK: Denies new pain Psych: Mild anxiety Neuro: No SPANN or vision changes weakness or numbness Family History: Unchanged from Admission - Reviewed, non contrib Social History: Unchanged from Admission - Reviewed Past Medical History: Unchanged from Admission - As per above Review of Systems - Measurements Intake and Output: Intake and Output Last 24 Hours 04/05/19 04/06/19 04/07/19 04/08/19 06:59 06:59 06:59 06:59 Weight 229 lb - Review of Systems General Comments: See HPI Objective Active Medications: Citric Acid/Sodium Citrate (Bicitra*) 15 ml PO ONCE ONE Stop: 04/07/19 06:01 Last Admin: 04/07/19 11:07 Dose: 15 ml Lactated Ringer's (Lactated Ringers 1000 Ml Bag*) 1,000 mls @ 125 mls/hr IV PER RATE RAMIRO Last Admin: 04/07/19 11:07 Dose: 125 mls/hr Lidocaine/Sodium Bicarbonate (Buffered Lidocaine 1% Syrin*) 0.2 ml INTRADERM ONCE ONE Stop: 04/04/19 11:35 Vital Signs - 8 hr 04/07/19 11:03 Temperature 97.9 F Pulse Rate 73 Respiratory 16 Rate Blood Pressure 161/127 (mmHg) O2 Sat by Pulse 100 Oximetry Appearance: Pleasant woman in NAD Eyes: No Scleral Icterus Ears/Nose/Mouth/Throat: Clear Oropharnyx Neck: NL Appearance and Movements; NL JVP, Trachea Midline Respiratory: Symmetrical Chest Expansion and Respiratory Effort, Clear to Auscultation Cardiovascular: NL Sounds; No Murmurs; No JVD, RRR Abdominal: NL Sounds; No Tenderness; No Distention, No Hepatosplenomegaly Lymphatic: No Cervical Adenopathy Extremities: No Edema Skin: No Rash or Ulcers Neurological: Alert and Oriented x 3, NL Sensation, NL Muscle Strength and Tone Result Diagrams: 04/07/19 14:51 Assessment/Plan - Billing 38F PMH HTN, anxiety, chronic pain who presented for elective orthopedic surgery this morning with acute hypertension urgency systolics in the 160s, she rec'd 5mg Hydralazine x 2 at 1PM, 1:15PM with no sig improvement, medicine was consulted to discuss her home antiHTN regimen. Plan By Medical Problem: 1. HTN: Episode of HTN urgency most likely exacerbated by anxiety, possibly poorly controlled underlying essential HTN -Check renal function, if normal would recommend uptitrating to Losartan 50mg, she can take double her home dose in the AM not PM on d/c from PACU which we recommend -She should be allowed to take Alprazolam day of surgery next Sunday when it was rescheduled for -The case was discussed w anesthesia who agrees Dispo: Please d/c pt to home with instructions to follow up PCP and to increase Losartan dosage to 50mg for the next week, also change pre op instructions to reflect OK to take Alprazolam day of. Thank you for this consult we will sign off
[2019-04-07 15:09] LABS: ABS Basophils 0.1 10^3/ul (0-0.2); ABS Lymphocytes 1.3 10^3/ul (1.0-4.8); ABS Monocytes 0.4 10^3/ul (0-0.8); ABS Neutrophils 5.1 10^3/ul (1.5-7.7); Eosinophil % 0.5 %; Hematocrit 41 % (35-47); Hemoglobin 14.5 g/dL (12.0-16.0); Lymphocyte % 18.6 %; Mean Corpuscular HGB Conc 36 g/dL (31-36); Mean Corpuscular Hemoglobin 32 pg (27-31); Mean Corpuscular Volume 90 fL (80-97); Mean Platelet Volume 8.4 fL (7.4-10.4); Nucleated Red Blood Cells % 0.1; Platelet Count 211 10^3/uL (150-450); Red Blood Count 4.51 10^6 /uL (3.70-4.87); Red Cell Distribution Width 13 % (10-15); White Blood Count 6.8 10^3/uL (3.5-10.8)
[2019-04-07 15:42] LABS: Albumin 4.4 g/dL (3.2-5.2); Albumin/Globulin Ratio 1.8 (1-3); BUN/Creatinine Ratio 12.5 (8-20); Calcium 9.3 mg/dL (8.6-10.3); EGFR African American 86.1 (>60); EGFR Non-African American 71.2 (>60); Globulin 2.4 g/dL (2-4); Potassium 3.6 mmol/L (3.5-5.0); Total Bilirubin 0.7 mg/dL (0.2-1.0); Total Protein 6.8 g/dL (6.4-8.9)
== END | disposition home or self-care (01) ==
LOC: OR 10:10
PROVIDERS: ATTEND Orthopaedic Surgery
DX: M76.72 Peroneal tendinitis, left leg (principal); Z53.09 Procedure and treatment not carried out because of other contraindication; I10 Essential (primary) hypertension; F41.9 Anxiety disorder, unspecified
CPT/HCPCS: 36415; 80053; 85025; A9270-GY; J0360; J0690; J2250; J2704; J3010; J3490

== ENCOUNTER → 2019-04-14 10:03 | Day surgery (SDC) | payer OTHER ==
[~2019-04-14 10:03] MED LIST changes: +Dexamethasone IV* 4 MG/ML 1 ML (4 MG) IV SLOW PU ONE; +Dexamethasone IV* 4 MG/ML 1 ML (4 MG) ONE; +DiMENhydriNATE IV* 50 MG/ML VIAL IV PUSH PRN; +DiMENhydriNATE IV* 50 MG/ML VIAL ONE; +EPHEDrine (Pressors)* 50 MG/ML VIAL ONE; +Famotidine IV* 10 MG/ML 2 ML (20 mg) IV ONE; +Famotidine IV* 10 MG/ML 2 ML (20 mg) ONE; +HYDROcodone/ACETAMIN 5-325 MG* 1 TAB PO PRN; +Ketorolac INJ* 30 MG/ML 1 ML VIAL IV PRN; +Ketorolac INJ* 30 MG/ML 1 ML VIAL ONE; +Labetalol IV* 5 MG/ML 20 ML VIAL ONE; -Midazolam* 1 MG/ML 2 ML VIAL (2 MG) ONE; +Midazolam* 1 MG/ML 5 ML VIAL (5 MG) ONE; +Naloxone* 0.4 MG/ML 1 ML VIAL IV PRN; +Ondansetron INJ* 2 MG/ML VIAL ONE; +Phenylephrine 10 MG/ML VIAL* 1 ML VIAL ONE; -Sodium Citrate/Citric Acid* 15 ML UDC ONE; -Sodium Citrate/Citric Acid* 15 ML UDC PO ONE; +ceFAZolin 2 GM PREMIX in ORs 2 GM/50 ML BAG ONE; -ceFAZolin 2 GM in NS PREMIX(*) 0 GM/0 ML BAG IVPB ONE; +fentaNYL* 50 MCG/ML 5 ML VIAL (250 MCG VIAL) ONE; +oxyCODONE/Acetamin 5/325 MG* TAB ONE
[2019-04-14] MEDS: oxyCODONE/Acetamin 5/325 MG* TAB PO PRN ×2 (12:57→14:14)
[2019-04-14] MEDS: hydrALAZINE IV* 20 MG/ML VIAL IV SLOW PU PRN ×4 (13:13→14:07)
[2019-04-14] MEDS: fentaNYL* 50 MCG/ML 2 ML VIAL (100 MCG VIAL) IV PRN ×2 (14:17→14:26)
[2019-04-14 16:30] VITALS: BP 127/73
--- NOTE | 2019-04-14 21:37 | OP ---
DATE OF OPERATION: 04/14/19 - [facility] DATE OF : 76 SURGEON: Pillo Gonzalez MD DELPHI DEVELOPER: Adán Graham PA-C PRE-OP DIAGNOSIS: Recurrent instability, left peroneus brevis and longus tendons with longitudinal tear of the peroneus brevis. POST-OP DIAGNOSIS: Recurrent instability, left peroneus brevis and longus tendons with longitudinal tear of the peroneus brevis with some attrition of the peroneus longus as well. OPERATIVE PROCEDURE: Tubular repair of the peroneus brevis tendon, debridement of the peroneus longus tendon, groove deepening left fibula, and retinacular repair using allograft augmentation. DESCRIPTION OF PROCEDURE: The patient was taken to the operating room where a longitudinal incision was made over the distal fibula. We incised directly through the retinaculum to expose the peroneal sheath. Both the peroneus longus and brevis tendons were subluxed anteriorly for better visualization. There was a 4-cm longitudinal split in the peroneus brevis, this was debrided and freshened with a 15 blade and a double layer running suture repair was made with 3-0 Monocryl and this allowed and provided a tubularization. The peroneus longus tendon was abraded and worn, but not torn. There was no full- thickness split tear. I debrided the anterior portion which appeared somewhat fibrotic. We then performed another groove deepening by the osteotomy near the fibula, posterior and lateral corners, and drove this anteriorly; this deepened the groove. There was no palpable spike or irregular area in the back to abrade the tendons. Front to back drill holes were placed through the distal fibula using a 0.062 C wire. #1 Vicryl sutures were passed through these bone holes and a Romeo-Juan Carlos suture in the retinaculum to bring it up firmly to the posterolateral corner. We also tacked a 4-cm long segment of the semitendinosus allograft along the posterior portion of the retinaculum and brought it up to the lateral border of the fibula passing it through the redundant periosteum and anchoring it in that way by 2-0 Vicryl sutures. We then brought the reflected periosteum back to the edge of the retinacular repair with 2-0 Vicryl sutures as well. The tendons appeared to track well through the sheath by pointing distally and checking them for free motion and we irrigated thoroughly and subcutaneous closure with 3-0 Monocryl and kuldip for the skin and a compression dressing applied. [id number]/[facility] #: [id number] NOAH
--- NOTE | 2019-04-15 13:12 | PN ---
Progress Note - Progress Note Date of Service: 04/14/19 - Anesthesia Note Note: I spoke with Cely last night as a follow up for her post op tachycardia. She stated she was feeling well with no symptoms and her HR was 102 just prior to my call. She expressed no concerns during our conversation. She was instructed to go to ED of new or worsening symptoms arose. Dr. Horta
== END | disposition home or self-care (01) ==
LOC: OR 10:03
PROVIDERS: ATTEND Orthopaedic Surgery
DX: S86.312D Strain of muscle(s) and tendon(s) of peroneal muscle group at lower leg level, left leg, subsequent encounter (principal); M76.72 Peroneal tendinitis, left leg; M25.372 Other instability, left ankle; G47.30 Sleep apnea, unspecified; F41.9 Anxiety disorder, unspecified; G25.81 Restless legs syndrome; G47.33 Obstructive sleep apnea (adult) (pediatric); E66.9 Obesity, unspecified; X58.XXXD Exposure to other specified factors, subsequent encounter; Y92.9 Unspecified place or not applicable
CPT/HCPCS: A9270-GY; C1776; J0360; J0690; J1100; J1240; J1885; J2250; J2405; J2704; J3010; J3490; L8699